=== PATIENT | male | born 1955 | race Caucasian/White ===

== ENCOUNTER 2019-03-13 16:55 | Day surgery (SDC) | payer MEDICARE, OTHER ==
[~2019-03-13] VITALS: Ht 177.8 cm; Wt 90.3 kg
--- OUTSIDE RECORDS SUMMARY | 2019-03-13 16:42 | XMS REPORT | Continuity of Care Document ---
Author Organization Unknown Address Unknown Phone Unavailable Allergies There is no data. Medications There is no data. Problems There is no data. Procedures There is no data. Results There is no data. Encounters ACCT No. Visit Date/Time Discharge Status Pt. Type Provider Facility Loc./Unit Complaint [id number] 03/02/2019 08:00:00 03/02/2019 23:59:59 [facility]
[2019-03-13 17:01] VITALS: BP 123/79
[2019-03-13] MEDS ORDERED: HYDROXYCUT PO (17:12)
[2019-03-13] MEDS ORDERED: [UNRECOGNIZED DRUG - CODE] PO (17:13)
[2019-03-13] MEDS ORDERED: FLUO40CA PO (17:15)
[2019-03-13] MEDS ORDERED: MULT-VITAMIN (17:16)
[2019-03-13] MEDS ORDERED: LINA72CA PO (17:17)
[2019-03-13] MEDS ORDERED: [UNRECOGNIZED DRUG - OTHER] PO (17:28)
[2019-03-13] MEDS ORDERED: ENERGY PO (17:28)
--- NOTE | 2019-03-13 17:30 | NUR ---
f pt name] admitted to room 419-1, with an admitting diagnosis of CHEST PAIN, on 03/13/19 from ER via W/C, accompanied by STAFF.JOHN MAGALLON introduced to surroundings, call light, bed controls, phone, TV, temperature control, lights, meal times, smoking policy, visitor policy, side rail policy, bathrooms and showers. Patient Rights given to patient in the handbook.JOHN MAGALLON verbalizes understanding that [facility] is not responsible for the loss or damage to any personal effects or valuables that are kept in the patients posession during their hospitalization. The following Patient Care Plans were discussed with the : Discharge Planning, PAIN CONTROL,ANTIBIOTIC, and MOBILITY. JOHN MAGALLON verbalizes understanding of Interdisciplinary Patient Education. Patient and/or family were informed about the Rapid Response Team and its purpose.
[2019-03-13 17:32] LABS: HEMOGLOBIN 15.2 G/DL (13.3-17.7); MEAN PLATELET VOLUME 9.5 FL (7.4-10.4); RED CELL DISTRIBUTION WIDTH 12.8 % (10.0-14.5); WHITE BLOOD COUNT 6.9 10^3/uL (4.3-11.0)
[2019-03-13] MEDS ORDERED: ASPIRIN E.C. 325 MG (ECOTRIN) TABLET PO NR (17:35)
[2019-03-13] MEDS ORDERED: ENOXAPARIN 100 MG/1 ML (LOVENOX) SYR SC NR (17:35)
[2019-03-13] MEDS ORDERED: PANTOPRAZOLE 40 MG (PROTONIX) TAB PO NR (17:35)
[2019-03-13 17:44] LABS: PROTHROMBIN TIME PATIENT 13.9 SEC (12.2-14.7)
[2019-03-13 17:52] LABS: ALANINE AMINOTRANSFERASE 15 U/L (0-55); ALBUMIN 4.2 GM/DL (3.2-4.5); ALKALINE PHOSPHATASE 63 U/L (40-136); BILIRUBIN,TOTAL 0.5 MG/DL (0.1-1.0); BUN/CREATININE RATIO 15; CALCIUM 9.2 MG/DL (8.5-10.1); CARBON DIOXIDE 22 MMOL/L (21-32); CHLORIDE 107 MMOL/L (98-107); GFR ESTIMATED > 60; GLUCOSE 95 MG/DL (70-105); SODIUM 140 MMOL/L (135-145); TOTAL PROTEIN 7.9 GM/DL (6.4-8.2)
[2019-03-13 19:31] VITALS: BP 125/67
[2019-03-14] VITALS (9 sets, daily range): BP systolic 105–142; BP diastolic 62–76
[2019-03-14] MEDS ORDERED: CATHETER FLUSH 10 ML SYR IV PRN (07:00)
--- NOTE | 2019-03-14 07:05 | NUR ---
Patient off floor at this time for stress test.
--- NOTE | 2019-03-14 08:35 | NUR ---
Patient back in room from stress test at this time, patient alert and sitting on bed, talking with , denies any pain or discomfort at this time. Call light within reach.
[2019-03-14] MEDS ORDERED: PANTOPRAZOLE 40 MG (PROTONIX) TAB PO SCH (09:00)
[2019-03-14] MEDS ORDERED: MULT1TAB69 PO (09:00)
[2019-03-14] MEDS ORDERED: FLUO40CA12 PO (09:00)
[2019-03-14] MEDS ORDERED: ASPIRIN E.C. 81 MG (ECOTRIN) TAB PO SCH (09:00)
[2019-03-14] MEDS ORDERED: LINA72CA PO (09:03)
[2019-03-14] MEDS ORDERED: CYAN100015 SL (09:04)
--- NOTE | 2019-03-14 11:45 | NUR ---
REPORT RECEIVED FROM NING BUTCHER. ASSUMED CARE OF PATIENT AT THIS TIME.
--- NOTE | 2019-03-14 11:45 | NUR ---
Report given to Elza BARCLAY at this time.
[2019-03-14] MEDS ORDERED: NS IV 1000 ML 1,000 ML IV SCH ×2 (12:30→14:58)
--- NOTE | 2019-03-14 12:49 | Cardiology History & Physical ---
HPI-Cardiology Cardiology Consultation Date of Consultation 03/14/19 Date of Admission Time Seen by Provider: 12:46 Indication: chest pain HPI Mr Linh Dye is 64 years old gentleman with no signal can past history, has been having occasional episode of palpitation feeling rapid heart rate, recently has been having chest tightness in the retrosternal area with exertion which has been worsening, he came worse to the point that he has tightness in his chest when he walks his dogs relieved by rest. Has been progressive, made an appointment came for evaluation, denied any active pain at this point. Denied any palpitation at this point. Has been having palpitation. Patient was admitted to the hospital and monitored overnight, felt well. Underwent stress test which showed subtle abnormality mainly at the inferior wall, discussed the management plan and planning to proceed with cardiac catheterization. PMH-Cardiology Immunizations Up To Date Date of Pneumonia Vaccine: May 09, 2018 Seasonal Allergies Seasonal Allergies: No Surgeries Yes (RIGHT JAW WIRED FROM [employer] . WILLIAMS PROCEDURE TO RIGHT CALF CARCINOMA) Cardiovascular Yes (TACHY HEART RATE AT TIMES AND CHEST TIGHTNESS X 1 MONTH) High Cholesterol Neurological Yes (WHEN HE GETS TACHYCARDIA GETS DIZZY) Genitourinary No Gastrointestinal Yes (GB REMOVED) Gall Bladder Disease Musculoskeletal Arthritis, Fractures Endocrine No HEENT No Hearing Impairment: Hard of Hearing, Bilateral Hearing Aide Cancer Yes (CARCINOMA RIGHT CALF) Psychosocial Yes Sleep Difficulties, Anxiety, PTSD, Depression Integumentary No Blood Transfusions No Adverse Rxn to Transfusion: No Social History Patient Social History Marrital Status: Employed/Student: employed Alcohol Use: Past History Recreational Drug Use: No Smoking: Never smoker Recent Foreign Travel: No Contact w/other who traveled: No Recent Infectious Disease Expo: No Family Hx Family History: FH: breast cancer G8 SISTER FH: pancreatic disease 19 MOTHER ROS-Cardiology Review of Systems General: No Chills, No Night Sweats, No Fatigue, No Malaise, No Appetite HEENT: No Head Aches, No Visual Changes, No Eye Pain, No Ear Pain, No Dysphasia, No Sinus Congestion, No Post Nasal Drip, No Sore Throat Pulmonary: No Dyspnea, No Cough, No Pleuritic Chest Pain Cardiovascular: Chest Pain, Palpitations; No: Orthopnea, Paroxysmal Noc. D yspnea, Edema, Lt Headedness Gastrointestinal: No: Nausea, Vomiting, Abdominal Pain, Diarrhea, Constipation, Melena, Hematochezia Genitourinary: No Dysuria, No Frequency, No Incontinence, No Hematuria, No Retention Musculoskeletal: No: neck pain, shoulder pain, arm pain, back pain, hand pain, leg pain, foot pain Neurological: No: Weakness, Numbness, Incoordination, Change in speech, Confusion, Seizures Home Medications & Allergies Allergies: Coded Allergies: No Known Drug Allergies (Unverified , 03/13/19) Home Medication List Reviewed: Yes Exam-Cardiology Vital Signs Vital Signs Date Time Temp Pulse Resp B/P (MAP) Pulse Ox O2 Delivery O2 Flow Rate FiO2 03/14/19 12:24 74 03/14/19 09:30 Room Air 03/14/19 08:04 121/76 (91) 98 03/14/19 04:00 97.8 18 Exam General Appearance: Alert, Oriented X3, Cooperative, No Acute Distress HEENT: Atraumatic, PERRLA Respiratory: Clear to Auscultation, Normal Air Movement Cardiovascular: Regular Rate, Normal S1, Normal S2, No Murmurs Abdominal: Normal Bowel Sounds, Soft, No Tenderness, No Hepatosplenomegaly, No Masses Extremities: No Clubbing, No Cyanosis, No Edema, Normal Pulses, No Tenderness/Swelling Skin: No Rashes, No Breakdown, No Significant Lesion Neuro: Normal Gait, Normal Speech, Strength at 5/5 X4 Ext, Normal Tone, Sensation Intact Psych/Mental Status: Mental Status NL, Mood NL Results Labs Labs Laboratory Tests 03/13/19 17:22: White Blood Count 6.9, Red Blood Count 4.67, Hemoglobin 15.2, Hematocrit 43, Mean Corpuscular Volume 92, Mean Corpuscular Hemoglobin 33, Mean Corpuscular Hemoglobin Concent 35, Red Cell Distribution Width 12.8, Platelet Count 185, Mean Platelet Volume 9.5, Prothrombin Time 13.9, INR Comment 1.0, Activated Partial Thromboplast Time 25, Sodium Level 140, Potassium Level 4.0, Chloride Level 107, Carbon Dioxide Level 22, Anion Gap 11, Blood Urea Nitrogen 16, Creatinine 1.10, Estimat Glomerular Filtration Rate > 60, BUN/Creatinine Ratio 15, Glucose Level 95, Calcium Level 9.2, Corrected Calcium 9.0, Total Bilirubin 0.5, Aspartate Amino Transf (AST/SGOT) 22, Alanine Aminotransferase (ALT/SGPT) 15, Alkaline Phosphatase 63, Troponin I < 0.028, Total Protein 7.9, Albumin 4.2, Thyroid Stimulating Hormone (TSH) 1.60 A/P-Cardiology Admission Diagnosis Chest pain Palpitation Tobaccoism Coronary artery disease Admission Status: Observation Assessment/Plan Chest pain resembling angina, accelerating angina, EKG was done in the office showing sinus rhythm with early transition V1 and V2. No acute ischemic changes. Stress test was done this morning showing subtle abnormal in the inferior wall, could be secondary to diaphragmatic attenuation, due to the fact that his presentation was classic with accelerating angina I am planning to proceed with cardiac catheterization, discussed the management plan with the patient, discussed all options. Recurrent palpitation, having episode of rapid and irregular heart rate. Continue to monitor on telemetry Tobaccoism, stopped smoking 2016, encouraged to continue with smoking cessation. Family history of heart disease, father had history of heart disease. History of hip surgery, cholecystectomy in the remote past Clinical Quality Measures DVT/VTE Risk/Contraindication: Risk Factor Score Per Nursin RFS Level Per Nursing on Admit: 2=Moderate NUVIA WILSON MD Mar 14, 2019 12:49 pm
[2019-03-14] MEDS ORDERED: HEParin (CATH LAB) 2,000 ML IV ONE (13:20)
[2019-03-14] MEDS ORDERED: LIDOCAINE 1% INJ 20 ML 20 ML VIAL ONE (13:20)
[2019-03-14] MEDS ORDERED: fentaNYL INJECTION 100 MCG/2 ML AMP ONE (13:57)
[2019-03-14] MEDS ORDERED: MIDAZOLAM 5 MG/5 ML (VERSED) VIAL ONE (13:57)
--- NOTE | 2019-03-14 14:15 | NUR ---
PT WAS TAKEN OFF FLOOR VIA BED FOR HEART CATH PROCEDURE.
[2019-03-14] MEDS ORDERED: VERAPAMIL 5 MG/2 ML (CALAN) VIAL IV ONE (14:17)
[2019-03-14] MEDS ORDERED: HEParin 1000 UNIT/ML (10ML VIAL) FOR BOLUS ONE (14:17)
[2019-03-14] MEDS ORDERED: NITRO DRIP 25000 MCG/D5W 250 ML IV ONE (14:17)
--- NOTE | 2019-03-14 14:33 | NUR ---
REPORT WAS GIVEN TO NING FLETCHER IN ICU.
--- NOTE | 2019-03-14 14:58 | Cardiac Procedure Note-CS/ASA ---
Pre-Procedure Note Pre-Op Procedure Note H&P Reviewed The H&P was reviewed, patient examined and no changes noted. Date H&P Reviewed: Mar 14, 2019 Time H&P Reviewed: 13:00 Conscious Sedation Pre-Proced Time 13:00 ASA Score 3 For ASA 3 and 4: Consider anesthesia and medical clearance. Also, for patients with a history of failed moderate sedation consider anesthesia. Airway Lungs Heart ASA score ASA 1: a normal healthy patient ASA 2: a patient with a mild systemic disease (mid diabetes, controlled hypertension, obesity x ASA 3: a patient with a severe systemic disease that limits activity (angina, COPD, prior Myocardial infarction) ASA 4: a patient with an incapacitating disease that is a constant threat to life (CHF, renal failure) ASA 5: a moribund patient not expected to survive 24 hrs. (ruptured aneurysm) ASA 6: a declared brain- patient whose organs are being harvested. For emergent operations, add the letter E after the classification Mallampati Classification Grade 3 Sedation Plan Analgesia, Amnesia, Plan communicated to team members, Discussed options with patient/fam, Discussed risks with patient/fam The patient is an appropriate candidate to undergo the planned procedure, sedation, and anesthesia. The patient immediately re-assessed prior to indication. NUVIA WILSON MD Mar 14, 2019 14:58
--- NOTE | 2019-03-14 15:03 | Cardiac Cath Report ---
Cardiac Cath Report Physician (s)/Recruiting Administrator (s) Physician NUVIA WILSON MD Pre-Procedure Diagnosis Pre-Procedure Diagnosis: chest pain Post-Procedure Note Procedure Start Date: Mar 14, 2019 Name of Procedure: Left heart catheterization Left ventriculogram Aortic arch angiogram Findings/Procedure Note PROCEDURE NOTE: 64 years old gentleman with recurrent chest pain, has been having accelerating angina, underwent stress test this morning which was borderline abnormal, due to his persistent recurrent episode we decided to proceed with cardiac catheterization possible PTCA. After explaining the procedure to the patient, all pros and cons were explained, all questions were answered. The patient signed the consent and then he was placed on the cardiac catheterization laboratory. Groin was prepped SL fashion local anesthesia was used. Sheath placed in the right radial artery. Colbert catheter was used to access the coronary system, extended to the left vent ricular cavity and left ventriculogram was done, pulled back LV to aorta pressure pullback was measured. Then pulled the aortic arch and aortic arch angiogram was done At the end of the procedure the sheath was removed. vascular band was used FINDINGS: Hemodynamics LV 80/13, end-diastolic pressure of 13 Aorta 80/56 mean of 65 ANATOMY: Left Main is free of obstructive disease Left Anterior Descending history of obstructive disease, slow flow was noted Left Circumflex is clear of obstructive disease, slow flow was noted Right Coronory Artery is dominant artery with no significant obstructive disease, slow flow was noted LV Gram was done showing normal left ventricular size, normal sanju 50, ejection fraction 60 percent Aorta evaluation done with aortic arch angiogram showing normal aorta, no dissection or aneurysm, normal origin of the innominate artery, left carotid and left subclavian artery CONCLUSION: 1. No obstructive disease in the coronary system, slow flow was noted to probably too small vessel disease and borderline hypotension 2. Normal left ventricular size and systolic function estimated ejection fraction 60 percent 3. Normal aortic arch and great vessels of the neck DISCUSSION AND RECOMMENDATION: medical therapy is recommended no intervention is needed Anesthesia Type: Conscious Sedation Estimated blood loss (mL): 5 ml Contrast Amount: 52 ml Total Radiation Dose: 540 mGy Post-Procedure Diagnosis Post-operative diagnosis: chest pain Coronary artery disease Shortness of breath NUVIA WILSON MD Mar 14, 2019 15:03
[2019-03-14] MEDS ORDERED: ASPI-983 PO (15:07)
--- NOTE | 2019-03-14 15:09 | Discharge Inst-Post CATH ---
Discharge Inst-CATH/EP Problems Reviewed?: Yes Post Cardiac Cath/EP D/C Inst Follow Up/Plan Appointment with Dr. Brannon's office in 2-4 weeks <b>CARDIAC CATH/EP PROCEDURE DISCHARGE INSTRUCTIONS</b> ACTIVITY * Go Home directly and rest. * Limit activity of the leg (or wrist if it was used) for 7 days including aerobics, swimming, jogging, bicycling, etc. * Restrict stair-climbing for 7 days if possible, if not, climb up with your non-cath leg, then bring together on the same step. * Avoid lifting, pushing, pulling or excessive movement of the affected extremity for 7 days. * Customary sexual activity may be resumed after 2 days-use caution not to use a position that strains or causes pain to the affected extremity. * No driving for 24 hours. * NO SMOKING. * Avoid straining for bowel movements for 7 days. * Gentle walking on level ground is allowed. * Returning to work will depend on the type of procedure and the results. Your doctor will discuss this with you. CALL YOUR DOCTOR FOR ANY OF THE FOLLOWING: *If bleeding from the puncture site occurs- Apply gentle pressure to site with clean cloth and call your doctor or EMS. * If a knot or lump forms under the skin, increases in size, or causes pain. * If bruising appears to be worsening or moving further down your leg instead of disappearing. * Temperature above 101 F. CARE OF YOUR GROIN INCISION; * Bruising or purple discoloration of the skin near the puncture site is common. * You may shower only, no bathtub bathing for 5 days. Be careful to avoid slipping as your leg may feel stiff. * If a closure device was used on your femoral artery, please see the attached guide regarding care of the device and your leg. * Leave dressing on FOR 24 hours. CARE OF YOUR WRIST INCISION; * Bruising or purple discoloration of the skin near the puncture site is common. * You may shower. * DO NOT submerge wrist. * Leave dressing on FOR 24 hours. NUVIA BRANNON MD Mar 14, 2019 15:08
[2019-03-15] MEDS ORDERED: FLUoxetine HCL 20 MG (PROzac) CAP PO SCH (09:00)
--- NOTE | 2019-03-16 01:16 | STRESS TEST ---
DATE OF SERVICE: 03/14/2019 EXERCISE MYOVIEW STRESS TEST REPORT Baseline heart rate is 54, baseline blood pressure 123/68. Baseline EKG is sinus rhythm with no ischemic changes. In summary, the patient was injected with 10.33 mCi of technetium-99 Myoview and the resting images were obtained. Then, the patient started exercising with a baseline heart rate, blood pressure and EKG mentioned above. The patient was able to exercise for 7 minutes on standard Gage protocol. With peak exercise level, EKG was showing occasional PACs with nondiagnostic changes. Blood pressure was 169/67. During recovery, heart rate and blood pressure returned to baseline. EKG returned to baseline. The resting and stress images were reviewed and compared in the short axis, horizontal long axis, and vertical long axis views. Review of the images showed diaphragmatic attenuation with decreased uptake at the mid to apical inferior wall and inferolateral wall with subtle reversibility. SSS is 1, SDS 1, TID value 1.06. On the gated images, the left ventricle appeared to be normal size with normal contractility. Calculated ejection fraction 61%. CONCLUSION: 1. Fair exercise tolerance for a total of 7 minutes on standard Gage protocol, 8.5 METS achieving 91% of maximum expected heart rate. 2. Appropriate heart rate and blood pressure response to exercise returned to baseline during recovery. 3. Nondiagnostic EKG changes with exercise returned to baseline during recovery. 4. Diaphragmatic attenuation with decreased uptake at the mid to apical inferior wall and inferolateral wall with subtle reversibility. 5. Normal left ventricular size with normal contractility. Calculated ejection fraction 61%. Job ID: [id number] DocumentID: [id number] Dictated Date: 03/15/2019 20:03:46 Bar Tender Date: 03/16/2019 00:54:48 Dictated By: NUVIA WILSON MD
--- OUTSIDE RECORDS SUMMARY | 2019-03-17 12:44 | XMS REPORT | Continuity of Care Document ---
Author Organization Unknown Address Unknown Phone Unavailable Allergies There is no data. Medications There is no data. Problems There is no data. Procedures There is no data. Results There is no data. Encounters ACCT No. Visit Date/Time Discharge Status Pt. Type Provider Facility Loc./Unit Complaint [id number] 03/02/2019 08:00:00 03/02/2019 23:59:59 CLS [facility]
== END 2019-03-14 17:34 | disposition home or self-care (01) ==
LOC: 4TH 16:55 → UNDOADMIN 16:55 → CATH 16:55 → 4TH 16:55 → ICU 03-14 15:20 → CATH 03-14 17:34 → UNDODISIN 03-14 17:34
PROVIDERS: ATTEND Internal Medicine Cardiovascular Disease
DX: I25.10 Atherosclerotic heart disease of native coronary artery without angina pectoris (principal); R00.2 Palpitations; R00.0 Tachycardia, unspecified; E78.00 Pure hypercholesterolemia, unspecified; M19.91 Primary osteoarthritis, unspecified site; G47.9 Sleep disorder, unspecified; F41.9 Anxiety disorder, unspecified; F43.10 Post-traumatic stress disorder, unspecified; F32.9 Major depressive disorder, single episode, unspecified; Z82.49 Family history of ischemic heart disease and other diseases of the circulatory system; Z87.891 Personal history of nicotine dependence; Z85.89 Personal history of malignant neoplasm of other organs and systems
CPT/HCPCS: 36221; 36415; 78452; 80053; 84443; 84484; 85027; 85610; 85730; 93017; 93306; 93458; 99211; G0378